=== PATIENT | female | born 1985 | race Hispanic/Latino ===

== ENCOUNTER 2022-07-24 00:37 | Inpatient (IN) | payer MEDICAID, OTHER ==
[~2022-07-24 00:37] MED LIST: Acetaminophen 500 MG TAB PO PRN; Butorphanol Tartrate 1 MG/ML VIAL SLOW IVP PRN; Carboprost 250 MCG/ML AMP IM PRN; Diphenoxylate HCl/Atropine Tablet PO PRN; Docusate 100 MG CAP PO PRN; HYDROcodone/Acetaminophen 5/325 mg Tablet PO PRN; Ibuprofen 800 MG TAB PO PRN; Lactated Ringer's 1,000 ML IV SCH; Lidocaine 1% (PF) 30 ML VIAL SC PRN; Misoprostol 200 MCG TAB PR PRN; NS w/ Oxytocin 30 units 500 ML IV SCH; Ondansetron PF 4 MG/2 ML Vial IVP PRN; Promethazine HCl 25 MG/ML VIAL IM PRN; hydrALAZINE 20 MG/ML VIAL SLOW IVP PRN
[2022-07-24 01:06] VITALS: BMI 34.3
[2022-07-24 01:41] LABS: Hemoglobin 10.8 g/dL (12.0-15.5); Mean Corpuscular HGB CONC 32.8 g/dL (32.0-36.0); Mean Corpuscular Hemoglobin 25.8 pg (27.0-33.0); Mean Corpuscular Volume 78.5 fl (81.6-98.3); Mean Platelet Volume 9.3 fl (7.4-10.4); Platelet Count 340 10x3/uL (150-450); RBC Distribution Width 14.6 % (11.5-14.5); Red Blood Cell (RBC) Count 4.19 10x6/uL (3.90-5.03); White Blood Cell (WBC) Count 5.7 10x3/uL (3.5-10.5)
[2022-07-24 02:09] LABS: HBSAg Index 0.26 S/CO (0-0.99); Hep B Surf Ag Non-Reactive S/CO (NonReactive); Syphilis Antibody Nonreactive (Nonreactive); Syphilis Antibody Index 0.05 S/CO (<1.00 Non-Reactive)
[2022-07-24 03:27] LABS: SARS-CoV-2 NAA Rapid Test DETECTED (NotDetected)
[2022-07-24] MEDS: NS w/ Oxytocin 30 units 500 ML IV SCH ×2 (07:42→15:45)
[2022-07-24] MEDS ORDERED: diphenhydrAMINE 50 MG/ML VIAL IVP PRN (11:46)
[2022-07-24] MEDS ORDERED: Promethazine HCl 25 MG/ML VIAL IM PRN ×2 (11:46→17:41)
[2022-07-24] MEDS ORDERED: Naloxone HCl 0.4 mg/ml Vial IVP PRN ×2 (11:46)
[2022-07-24] MEDS ORDERED: ePHEDrine Sulfate 50 MG/10 ML VIAL SLOW IVP PRN (11:46)
[2022-07-24] MEDS ORDERED: Ondansetron PF 4 MG/2 ML Vial IVP PRN ×2 (11:46→17:41)
[2022-07-24] MEDS ORDERED: Acetaminophen 325 MG TAB PO PRN (11:46)
[2022-07-24] MEDS ORDERED: Moisturizing Cream (Eucerin) 113 GM JAR TOP PRN (11:46)
[2022-07-24] MEDS ORDERED: Communication Order-Pharmacy FS SCH (12:00)
[2022-07-24] MEDS ORDERED: Fentanyl 2 mcg/Bupivacaine 0.1% Cassette 100 ML EPIDURAL SCH (12:00)
[2022-07-24] MEDS ORDERED: Fentanyl 2 mcg/Bup 0.1% Cadd 100 ML ONE (12:04)
[2022-07-24] MEDS ORDERED: Lactated Ringer's 500 ML IV PRN (12:27)
[2022-07-24] MEDS ORDERED: HYDROcodone/Acetaminophen 5/325 mg Tablet PO PRN (17:41)
[2022-07-24] MEDS ORDERED: Measles/Mumps/Rubella 10 MCG/0.5 ML VIAL SC ONE (17:41)
[2022-07-24] MEDS ORDERED: Lanolin Ointment 7 GM TUBE TOP PRN (17:41)
[2022-07-24] MEDS ORDERED: Boostrix 0.5 ML (Tdap) VIAL (>/=7 yrs of age) IM ONE (17:41)
[2022-07-24] MEDS ORDERED: NS w/ Oxytocin 30 units 500 ML IV SCH (17:41)
[2022-07-24] MEDS ORDERED: Preparation H Ointment 28 GM TUBE PR PRN (17:41)
[2022-07-24] MEDS ORDERED: hydrALAZINE 20 MG/ML VIAL SLOW IVP PRN (17:41)
[2022-07-24] MEDS ORDERED: Varicella virus, LIVE 0.5 ML VIAL SC ONE (17:41)
[2022-07-24] MEDS ORDERED: diphenhydrAMINE 25 MG CAP PO PRN (17:41)
[2022-07-24] MEDS ORDERED: Misoprostol 200 MCG TAB VAG PRN (17:41)
[2022-07-24] MEDS ORDERED: Zolpidem Tartrate 5 MG TAB PO PRN (17:41)
[2022-07-24] MEDS ORDERED: Milk Of Magnesia 30 ML UDCUP PO PRN (17:41)
[2022-07-24] MEDS ORDERED: Bisacodyl 10 MG SUPP PR PRN (17:41)
[2022-07-24] MEDS: NIFEdipine 10 MG CAP ONE ×3 (18:05→18:07)
[2022-07-24] MEDS ORDERED: NIFEdipine 10 MG CAP ONE (18:06)
[2022-07-24] MEDS: Docusate 100 MG CAP PO SCH (21:38)
[2022-07-24] MEDS: Ibuprofen 800 MG TAB PO SCH (21:39)
[2022-07-25 04:30] LABS: Hemoglobin 9.5 g/dL (12.0-15.5); Mean Corpuscular HGB CONC 32.2 g/dL (32.0-36.0); Mean Corpuscular Hemoglobin 25.7 pg (27.0-33.0); Mean Corpuscular Volume 79.7 fl (81.6-98.3); Mean Platelet Volume 9.5 fl (7.4-10.4); Platelet Count 254 10x3/uL (150-450); RBC Distribution Width 14.6 % (11.5-14.5); White Blood Cell (WBC) Count 6.4 10x3/uL (3.5-10.5)
[2022-07-25] MEDS: Ibuprofen 800 MG TAB PO SCH ×2 (06:14→14:57)
[2022-07-25] MEDS ORDERED: NIFEdipine XL 60 MG TAB PO SCH ×2 (09:00)
[2022-07-25 09:08] VITALS: BP 139/90; TEMP 98.5
[2022-07-25] MEDS: Docusate 100 MG CAP PO SCH (09:11)
== END 2022-07-25 19:15 | disposition home or self-care (01) | DRG 805 ==
LOC: CSHLD 00:37 → CSHANTE 18:15
PROVIDERS: ADMIT Obstetrics & Gynecology; ATTEND Obstetrics & Gynecology
PROC: 10E0XZZ Delivery of Products of Conception, External Approach (ICD-10-PCS; principal; 2022-07-24)
PROC: 8E0ZXY6 Isolation (ICD-10-PCS; 2022-07-24)
DX: O10.92 Unspecified pre-existing hypertension complicating childbirth (principal); U07.1 COVID-19; Z37.0 Single live birth; O98.52 Other viral diseases complicating childbirth; Z3A.38 38 weeks gestation of pregnancy; Z88.8 Allergy status to other drugs, medicaments and biological substances; Z91.19 Patient's noncompliance with other medical treatment and regimen; O70.0 First degree perineal laceration during delivery
CPT/HCPCS: 36415; 51702; 85027; 86780; 86850; 86900; 86901; 87340; J2590; U0002